=== PATIENT | male | born 1970 | race Caucasian/White ===

== ENCOUNTER → 2019-02-12 07:46 | Outpatient (CLI) | payer OTHER, SELFPAY ==
[2019-02-12 08:34] LABS: Add Manual Diff / Slide Review NO; Basophils Absolute Auto 100 /uL (0-100); Basophils Percent Auto 1.4 % (0-2); Eosinophils Absolute Auto 200 /uL (0-450); Eosinophils Percent Auto 4.4 % (2-4); Hematocrit 45.4 % (41-53); Hemoglobin 15.8 g/dL (13.5-17.5); Lymphocytes Absolute Auto 1200 /uL (1100-4500); Lymphocytes Percent Auto 31.2 % (25-40); Mean Corpuscular HGB Conc 34.8 % (30-36); Mean Corpuscular Hemoglobin 30.1 PG (26-34); Mean Corpuscular Volume 86.5 fL (80-100); Monocytes Absolute Auto 300 /uL (0-900); Monocytes Percent Auto 8.9 % (3-14); Neutrophils Absolute Auto 2100 /uL (1500-7000); Neutrophils Percent Auto 54.1 % (50-75); Platelet Count 177 X10^3/uL (150-400); Red Blood Cell Count 5.25 X10^6/uL (4.5-5.9); Red Cell Distribution Width 13.5 % (11.6-14.8); White Blood Cell Count 3.9 X10^3/uL (4.5-11.0)
== END ==
PROVIDERS: PCP Internal Medicine; Visit Provider Orthopaedic Surgery
DX: Z01.812 Encounter for preprocedural laboratory examination (principal)
CPT/HCPCS: 36415; 85025

== ENCOUNTER → 2019-12-09 07:18 | Outpatient (CLI) | payer OTHER, SELFPAY ==
[2019-12-09 08:10] LABS: Alanine Aminotransferase 27 IU/L (<50); Albumin 4.2 g/dL (3.5-5.0); Albumin Globulin Ratio 1.4 (1.0-2.8); Alkaline Phosphatase 40 U/L (38-126); Aspartate Aminotransferase 29 IU/L (17-59); BUN Creatinine Ratio 16.2 (6-22); Bilirubin Total 0.6 mg/dL (0.2-1.3); Blood Urea Nitrogen 19 mg/dL (9-20); Calcium 9.4 mg/dL (8.4-10.2); Carbon Dioxide 31 mmol/L (22-32); Chloride 103 mmol/L (98-107); Cholesterol 199 mg/dL (140-199); Estimated Glomerular Filt Rate > 60.0 mL/min (>60); Globulin 2.9 g/dL (1.7-4.1); Glucose 105 mg/dL (70-100); HDL Cholesterol 48 mg/dL (40-60); HEMOLYSIS < 15 (0-50); LDL Cholesterol Calculated 109 mg/dL (<100); Potassium 4.7 mmol/L (3.4-5.1); Sodium 138 mmol/L (137-145); Total Protein 7.1 g/dL (6.3-8.2); Triglycerides 212 mg/dL (35-150)
== END ==
PROVIDERS: PCP Internal Medicine; Referring Provider Internal Medicine; Visit Provider Internal Medicine
DX: I10 Essential (primary) hypertension (principal); Z13.1 Encounter for screening for diabetes mellitus; Z13.220 Encounter for screening for lipoid disorders
CPT/HCPCS: 36415; 80053; 80061

== ENCOUNTER → 2020-10-08 16:23 | Outpatient (CLI) | payer OTHER, SELFPAY ==
[2020-10-08 18:03] LABS: Alanine Aminotransferase 35 IU/L (<50); Albumin 4.3 g/dL (3.5-5.0); Albumin Globulin Ratio 1.4 (1.0-2.8); Alkaline Phosphatase 44 U/L (38-126); Aspartate Aminotransferase 38 IU/L (17-59); BUN Creatinine Ratio 13.7 (6-22); Bilirubin Total 0.4 mg/dL (0.2-1.3); Blood Urea Nitrogen 14 mg/dL (9-20); Calcium 8.9 mg/dL (8.4-10.2); Carbon Dioxide 26 mmol/L (22-32); Chloride 103 mmol/L (98-107); Estimated Glomerular Filt Rate > 60.0 mL/min (>60); Glucose 86 mg/dL (70-100); HEMOLYSIS 18 (0-50); Magnesium 2.2 mg/dL (1.6-2.3); Potassium 4.1 mmol/L (3.4-5.1); Sodium 137 mmol/L (137-145); Total Protein 7.3 g/dL (6.3-8.2)
== END ==
PROVIDERS: PCP Internal Medicine; Referring Provider Internal Medicine; Visit Provider Internal Medicine
DX: R00.2 Palpitations (principal)
CPT/HCPCS: 36415; 80053; 83735

== ENCOUNTER → 2020-10-14 13:30 | Outpatient (CLI) | payer OTHER, SELFPAY ==
--- NOTE | 2020-11-04 11:13 | PM.CARDMON.1 ---
Assistant [employer] Report Referral & Results Date Patient Seen: 10/14/20 Requesting provider: Amilcar Pearce Indication: Palpitations Duration of monitoring (days): 7 Diary information: There were 4 patient triggered events and 4 patient diary entries Patient triggered events were associated variably with (within 45 seconds) sinus rhythm, PACs, PVCs, and SVT Patient diary events were associated variably with (within 45 seconds) sinus rhythm, PACs, and PVCs Data: Minimum heart rate identified was 41 beats per minute at 02:12 on 10/21/2020 Maximum sinus heart rate was 185 beats per minute at 19:22 on 10/16/2020 Maximum overall heart rate was 171 beats per minute at 19:44 on 10/14/2020 during a 4 beat run of SVT Less than 1% of identified beats were ventricular or supraventricular ectopic in origin, which would classify them as rare. 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 Patient events do not correlate necessarily with any one particular dysrhythmia, however no serious dysrhythmias identified on this study.
== END ==
PROVIDERS: PCP Internal Medicine; Referring Provider Internal Medicine; Visit Provider Internal Medicine
DX: R00.2 Palpitations (principal)
CPT/HCPCS: 93242; 93244

== ENCOUNTER → 2020-12-18 06:59 | Outpatient (CLI) | payer OTHER, SELFPAY ==
[2020-12-21 10:30] LABS: Fecal Immunochemical Test Negative (Negative)
== END ==
PROVIDERS: PCP Internal Medicine; Referring Provider Internal Medicine; Visit Provider Internal Medicine
DX: Z12.11 Encounter for screening for malignant neoplasm of colon (principal)
CPT/HCPCS: 82274

== ENCOUNTER → 2021-07-09 09:47 | Outpatient (CLI) | payer OTHER, SELFPAY ==
--- NOTE | 2021-07-09 09:48 | DI.US.S_ITS ---
PROCEDURE: US SCROTUM INDICATIONS: Right testis pain TECHNIQUE: Real-time scanning was performed of the scrotum and testicles, with image documentation. Color and pulse Doppler interrogation was performed of both testicles. COMPARISON: [facility], US, US TESTICULAR SCROTUM + DOPPLER, 12/21/2016, 16:26. FINDINGS: Right: Testicle is normal in size at 4.5 x 2.3 x 2.8 cm, and homogenous in echotexture. Epididymis is normal in overall size and morphology. No hydrocele or varicoceles. Overlying scrotal skin is normal in thickness. Left: Testicle is normal in size at 3.1 x 2.0 x 2.0 cm, and homogeneous in echotexture. Epididymis is normal in overall size and morphology. There is a 0.3 x 0.4 x 0.4 centimeter left epididymal cyst. No hydrocele or varicoceles. Overlying scrotal skin is normal in thickness. There is a 1.6 x 0.9 x 2.1 centimeter lesion with spongiform appearance in the inferior scrotum. Doppler evaluation demonstrates no internal vascular flow and the lesion does not change with Valsalva maneuver. Doppler: Color and pulse Doppler demonstrate normal and symmetric arterial flow in both testicles. IMPRESSION: 1. No evidence of testicular torsion. Please note ultrasound cannot exclude intermittent torsion. 2. Small left epididymal cyst. 3. 1.6 x 0.9 x 2.1 centimeter inferior scrotal spongiform lesion. Recommend correlation with clinical findings and follow-up ultrasound in 3 months to confirm stability or resolution. Dictated by: Irma Amos MD, PhD on 07/09/2021 at 14:25 Approved by: Irma Amos MD, PhD on 07/09/2021 at 14:32
== END ==
PROVIDERS: PCP Internal Medicine; Referring Provider Urology; Visit Provider Urology
DX: N50.811 Right testicular pain (principal); N50.3 Cyst of epididymis; N50.9 Disorder of male genital organs, unspecified
CPT/HCPCS: 76870

== ENCOUNTER → 2021-10-01 07:08 | Outpatient (CLI) | payer OTHER, SELFPAY ==
--- NOTE | 2021-10-01 07:10 | DI.US.S_ITS ---
PROCEDURE: US SCROTUM INDICATIONS: FOLLOW-UP TECHNIQUE: Real-time scanning was performed of the scrotum and testicles, with image documentation. Color and pulse Doppler interrogation was performed of both testicles. COMPARISON: [facility], , US SCROTUM, 07/09/2021, 10:06. FINDINGS: Right: Testicle is normal in size at 4.8 x 2.1 x 3.0 cm cm, and homogenous in echotexture. Epididymis is normal in overall size and morphology. No hydrocele or varicoceles. Overlying scrotal skin is normal in thickness. Left: Testicle is normal in size at 3.6 x 1.6 x 2.2 cm, and homogeneous in echotexture. Epididymis is normal in overall size and morphology. No hydrocele or varicoceles. Overlying scrotal skin is normal in thickness. Doppler: Color and pulse Doppler demonstrate normal and symmetric arterial flow in both testicles. Previously described spongiform extratesticular tissue is symmetric bilaterally and likely represents normal tissue and vessels. (grayscale image 27). IMPRESSION: Normal scrotal ultrasound. Dictated by: Angel Luis Little M.D. on 10/01/2021 at 9:11 Approved by: Angel Luis Little M.D. on 10/01/2021 at 9:15
== END ==
PROVIDERS: PCP Internal Medicine; Referring Provider Urology; Visit Provider Urology
DX: N50.82 Scrotal pain (principal); N43.40 Spermatocele of epididymis, unspecified; Z87.438 Personal history of other diseases of male genital organs
CPT/HCPCS: 76870

== ENCOUNTER → 2022-02-02 06:58 | Outpatient (CLI) | payer OTHER, SELFPAY ==
[2022-02-03 10:01] LABS: Fecal Immunochemical Test Negative (Negative)
== END ==
PROVIDERS: PCP Internal Medicine; Referring Provider Internal Medicine; Visit Provider Internal Medicine
DX: Z12.11 Encounter for screening for malignant neoplasm of colon (principal)
CPT/HCPCS: 82274

== ENCOUNTER → 2023-04-04 07:01 | Outpatient (CLI) | payer OTHER, SELFPAY ==
[2023-04-04 08:33] LABS: Alanine Aminotransferase 33 IU/L (<50); Albumin 3.9 g/dL (3.5-5.0); Albumin Globulin Ratio 1.3 (1.0-2.8); Alkaline Phosphatase 44 U/L (38-126); Aspartate Aminotransferase 34 IU/L (17-59); BUN Creatinine Ratio 12.2 (6-22); Bilirubin Total 0.6 mg/dL (0.2-1.3); Blood Urea Nitrogen 12 mg/dL (9-20); Calcium 9.3 mg/dL (8.4-10.2); Carbon Dioxide 29 mmol/L (22-32); Chloride 101 mmol/L (98-107); Cholesterol 195 mg/dL (140-199); Estimated Glomerular Filt Rate > 60 mL/min (>60); Glucose 96 mg/dL (70-100); HDL Cholesterol 32 mg/dL (40-60); HEMOLYSIS < 15 (0-50); LDL Cholesterol Calculated 105 mg/dL (<100); Potassium 4.5 mmol/L (3.4-5.1); Sodium 137 mmol/L (137-145); Total Protein 6.9 g/dL (6.3-8.2); Triglycerides 291 mg/dL (35-150)
[2023-04-05 11:13] LABS: Fecal Immunochemical Test Negative (Negative)
== END ==
PROVIDERS: PCP Internal Medicine; Referring Provider Internal Medicine; Visit Provider Internal Medicine
DX: I10 Essential (primary) hypertension (principal); Z13.1 Encounter for screening for diabetes mellitus; Z13.6 Encounter for screening for cardiovascular disorders; Z13.220 Encounter for screening for lipoid disorders; Z12.11 Encounter for screening for malignant neoplasm of colon
CPT/HCPCS: 36415; 80053; 80061; 82274

== ENCOUNTER → 2023-07-07 07:53 | Outpatient (CLI) | payer OTHER, SELFPAY ==
--- NOTE | 2023-07-07 07:54 | DI.MRI.S_ITS ---
PROCEDURE: MR CERVICAL SPINE WO CON INDICATIONS: SPINAL STENOSIS TECHNIQUE: Noncontrast sagittal T1 spin echo and T2 fast spin echo, sagittal STIR, foraminal oblique sagittal T2 fast spin echo, and axial gradient echo or T2 fast spin echo through the cervical spine. COMPARISON: [facility], MR, MR CERVICAL SPINE WITHOUT CONTRAST, 11/09/2018, 9:37. [facility], CR, XR CERVICAL SPINE 2 OR 3 VIEWS, 06/27/2023, 9:02. [facility], MR, C-SPINE WITHOUT CONTRAST, 12/01/2010, 7:31. FINDINGS: Image quality: Good. Metallic artifact reduction sequences were used. Alignment and Curvature: There is normal bony alignment. Bone Marrow: Disc fusion at C6-7. Otherwise normal marrow signal. Spinal Cord: Visualized spinal cord has normal size and signal. No cerebellar tonsillar herniation. Paraspinous Soft Tissues: No paravertebral masses. Prevertebral soft tissues are normal in thickness. C2-C3: Normal appearance. C3-C4: Normal appearance. C4-C5: Mild broad-based posterior disc osteophyte and mild facet arthropathy. There is slight flattening of the anterior thecal sac without effacement of CSF. Mild right and moderate left neural foraminal narrowing. This has progressed on the left since the prior exam. C5-C6: Broad-based posterior disc osteophyte and smooth posterior disc bulge. Mild deform a louie of the cord shape without abnormal cord signal or effacement of CSF. Mild bilateral facet arthropathy. [id number] right and moderate left foraminal narrowing without significant change. C6-C7: Post surgery at this level, there is been reduction of a left paracentral disc bulge with residual broad-based left foraminal disc osteophyte. There is been decrease in the severity of still persistent moderate left foraminal narrowing as well as mild improvement in right foraminal narrowing, now mild to moderate. C7-T1: Normal appearance. IMPRESSION: Reduction of central canal narrowing post C6-7 surgery. Mild central canal narrowing without significant progression at C4-5 and C5-6. Improvement of bilateral foraminal narrowing at C6-7 post surgery with persistent left foraminal narrowing which may be clinically significant. Persistent moderate left foraminal narrowing at C4-5 and C5-6, progressed at C4-5. Dictated by: Yumiko Diane M.D. on 07/07/2023 at 10:43 Approved by: Yumiko Diane M.D. on 07/07/2023 at 11:02
== END ==
PROVIDERS: PCP Internal Medicine; Referring Provider Physical Medicine & Rehabilitation; Visit Provider Physical Medicine & Rehabilitation
DX: M48.02 Spinal stenosis, cervical region (principal)
CPT/HCPCS: 72141

== ENCOUNTER → 2024-04-06 09:47 | Outpatient (CLI) | payer OTHER, SELFPAY | PROVIDERS: PCP Internal Medicine; Referring Provider Internal Medicine; Visit Provider Internal Medicine | DX: Z12.11 Encounter for screening for malignant neoplasm of colon (principal) | CPT/HCPCS: 82274 ==

== ENCOUNTER → 2024-08-30 14:20 | Outpatient (CLI) | payer OTHER, SELFPAY ==
[2024-08-30 15:29] LABS: Alanine Aminotransferase 39 IU/L (<50); Albumin 4.7 g/dL (3.5-5.0); Albumin Globulin Ratio 1.7 (1.0-2.8); Alkaline Phosphatase 45 U/L (38-126); Aspartate Aminotransferase 37 IU/L (17-59); BUN Creatinine Ratio 11.2 (6-22); Bilirubin Total 0.6 mg/dL (0.2-1.3); Blood Urea Nitrogen 12 mg/dL (9-20); Calcium 9.3 mg/dL (8.4-10.2); Carbon Dioxide 27 mmol/L (22-32); Chloride 102 mmol/L (98-107); Estimated Glomerular Filt Rate > 60 mL/min (>60); Globulin 2.8 g/dL (1.7-4.1); Glucose 86 mg/dL (70-99); HEMOLYSIS 19 (0-50); Potassium 4.5 mmol/L (3.4-5.1); Sodium 137 mmol/L (137-145); Total Protein 7.5 g/dL (6.3-8.2)
[2024-08-30 16:00] LABS: TSH w/ Reflex to FT4 2.88 uIU/mL (0.47-4.68)
== END ==
PROVIDERS: PCP Internal Medicine; Referring Provider Internal Medicine; Visit Provider Internal Medicine
DX: I10 Essential (primary) hypertension (principal)
CPT/HCPCS: 36415; 80053; 84443

== ENCOUNTER → 2025-02-20 16:58 | Outpatient (CLI) | payer OTHER, SELFPAY | PROVIDERS: PCP Internal Medicine; Visit Provider Registered Nurse | DX: J02.9 Acute pharyngitis, unspecified (principal) | CPT/HCPCS: 87070 ==